=== PATIENT | male | born 1985 ===

== ENCOUNTER 2016-09-12 16:56 | Emergency (ER) | payer OTHER ==
[2016-09-12 17:09] VITALS: BP 114/61
--- NOTE | 2016-09-12 17:46 | UC ---
Lower Extremity/Ankle HPI - HPI Summary HPI Summary: 30 y/o male presents to the urgent care c/o RT foot pain for the past week. Pt reports he did excessive walking with his flip flops and then pain started at the lateral side of his RT sole. Pain is 5/10 and increases w/ walking and doesn 't radiate w/ mild swelling. Pt denies numbness, tingling over his RT toes, fever, SOB, chest pain, N/V/D. Pt has not other complains. - History of Current Complaint Chief Complaint: UCLowerExtremity Stated Complaint: FOOT INJURY Time Seen by Provider: 09/12/16 17:11 Hx Obtained From: Patient Onset/Duration: Gradual Onset, Lasting Days, Still Present Severity Initially: Moderate Severity Currently: Moderate Pain Intensity: 5 - w/ walking Pain Scale Used: 0-10 Numeric Aggravating Factor(s): Ambulation Alleviating Factor(s): Rest Able to Bear Weight: Yes - Risk Factors Gout Risk Factors: Negative DVT Risk Factors: Negative Septic Arthritis Risk Factor: Negative - Allergies/Home Medications Allergies/Adverse Reactions: Allergies Allergy/AdvReac Type Severity Reaction Status Date / Time No Known Allergies Allergy Verified 09/12/16 17:09 PMH/Surg Hx/FS Hx/Imm Hx Previously Healthy: Yes - Surgical History Surgical History: Yes - Family History Known Family History: Positive: None - Social History Occupation: Employed Full-time Lives: With Family Alcohol Use: None Substance Use Type: None Smoking Status (MU): Current Every Day Smoker Amount Used/How Often: 1/2 -1 PPD X 7-8 YEARS Have You Smoked in the Last Year: No When Did the Patient Quit Smoking/Using Tobacco: 2 YEARS AGO- VAPORIZING TIL ABOUT 6 MONTHS AGO Review of Systems Constitutional: Negative Skin: Negative Eyes: Negative ENT: Negative Respiratory: Negative Cardiovascular: Negative Gastrointestinal: Negative Genitourinary: Negative Motor: Negative Neurovascular: Negative Musculoskeletal: Other: - RT foot sole pain Neurological: Negative Psychological: Negative All Other Systems Reviewed And Are Negative: Yes Physical Exam Triage Information Reviewed: Yes Appearance: Well-Appearing, No Pain Distress, Well-Nourished, Thin Vital Signs: Initial Vital Signs Temp 99.4 F 09/12/16 17:04 Pulse 82 09/12/16 17:04 Resp 18 09/12/16 17:04 BP 114/61 09/12/16 17:04 Pulse Ox 99 09/12/16 17:04 Vital Signs Reviewed: Yes Eye Exam: Normal Eyes: Positive: Conjunctiva Clear - PERRLA, EOMI, fundi grossly normal ENT Exam: Normal ENT: Positive: Normal ENT inspection, Hearing grossly normal, Pharynx normal, TMs normal Dental Exam: Normal Neck exam: Normal Neck: Positive: Supple, Nontender, No Lymphadenopathy Respiratory Exam: Normal Respiratory: Positive: Chest non-tender, Lungs clear, Normal breath sounds Cardiovascular Exam: Normal Cardiovascular: Positive: RRR, No Murmur, Pulses Normal, Brisk Capillary Refill Abdominal Exam: Normal Abdomen Description: Positive: Nontender, No Organomegaly, Soft. Negative: CVA Tenderness (R), CVA Tenderness (L) Bowel Sounds: Positive: Present Musculoskeletal Exam: Normal Musculoskeletal: Positive: Strength Intact, ROM Intact, Other: - Point tenderness w/ mild swelling at the level of the #4 and # 5 metatarsal, no erythema observed. FROM of the RT foot w/ positive sensation, capillary refill and sensation is WNL. Lower Extremity Course/Dx - Course Course Of Treatment: 30 y/o male presents to the urgent care c/o RT foot pain for the past week. Pt reports he did excessive walking with his flip flops and then pain started at the lateral side of his RT sole. Pain is 5/10 and increases w/ walking and doesn't radiate w/ mild swelling. Pt denies numbness, tingling over his RT toes, fever, SOB, chest pain, N/V/D. Pt has not other complains. Hx obtained. PE abnormal findings:Point tenderness w/ mild swelling at the level of the #4 and # 5 metatarsal, no erythema observed. FROM of the RT foot w/ positive sensation, capillary refill and sensation is WNL. 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 Pt immobilized w/ a post-up shoe and advised to apply ice and avoid excessive flexion w/ RT foot. Ibuprofen PO Rx to alleviate pain. Advised to f/u with PCP if symptoms do not improve or worsen. Pt understood and agreed. Pt left the clinic ambulating. 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 F/u with your PCP if symptoms do not improve or worsen.
== END 2016-09-12 17:56 | disposition home or self-care (01) ==
LOC: UCEAST 16:56
DX: M79.671 Pain in right foot (principal); Z87.891 Personal history of nicotine dependence
CPT/HCPCS: 99212; G0463